=== PATIENT | male | born 1960 | race Caucasian/White ===

== ENCOUNTER 2021-11-10 15:02 | Emergency (ER) | payer MEDICARE, SELFPAY ==
[2021-11-10 15:10] VITALS: BP 119/67; PULSE 103; RESP 20; TEMP 36.9; O2SAT 97
--- NOTE | 2021-11-10 15:13 | ED.WOUNDLAC ---
HPI - Wound/Laceration General Chief Complaint: Wound/Laceration Stated Complaint: Puncture Wound/Left Foot Time Seen by Provider: 11/10/21 15:14 Source: patient and RN notes reviewed History of Present Illness HPI narrative: Patient is a 61-year-old male who presents the urgent care with complaints of a puncture wound to the left foot. Patient states he stepped on a nail approximately 1 hour ago that punctured through his flip-flop. Patient states that it came out almost immediately and he cleaned it with peroxide. Patient states that his biggest concern was getting up-to-date on his tetanus shot. No other acute complaints. No acute distress noted. Patient aware of the plan of care. Some parts of this dictation were generated by voice recognition software and may contain typographical and/or grammatical inaccuracies. Related Data Home Medications Medication Instructions Recorded Confirmed albuterol sulfate 90 mcg/actuation 2 inh INHALATION Q4H g 09/17/20 10/08/20 aerosol inhaler atorvastatin 20 mg tablet 20 mg PO DAILY 09/17/20 10/08/20 buspirone 10 mg tablet 10 mg PO TID 09/17/20 10/08/20 duloxetine 60 mg capsule,delayed 60 mg PO DAILY 09/17/20 10/08/20 release lactulose 10 gram/15 mL oral 15 ml PO DAILY 09/17/20 10/08/20 solution metoprolol succinate 50 mg 50 mg PO DAILY 09/17/20 10/08/20 tablet,extended release 24 hr multivit with min-folic 1 tablet PO DAILY 09/17/20 10/08/20 acid-lutein 400 mcg-250 mcg chewable tablet pantoprazole 40 mg tablet,delayed 40 mg PO QAM 09/17/20 10/08/20 release phentermine 37.5 mg capsule 37.5 mg PO DAILY 09/17/20 10/08/20 tamsulosin 0.4 mg capsule 0.4 mg PO DAILY 09/17/20 10/08/20 temazepam 30 mg capsule 30 mg PO QHS PRN 09/17/20 10/08/20 tiotropium bromide 2.5 2 puff INHALATION DAILY 09/17/20 10/08/20 mcg/actuation mist for inhalation valsartan 160 mg tablet 160 mg PO DAILY 09/17/20 10/08/20 lamotrigine 100 mg tablet 100 mg PO DAILY 10/01/20 10/08/20 bumetanide 3 mg PO BID 11/10/21 11/10/21 clonidine HCl 0.1 mg PO DAILY 11/10/21 11/10/21 ergocalciferol (vitamin D2) 1 unit PO MONTHLY 11/10/21 11/10/21 ondansetron 4 mg PO PRN 11/10/21 11/10/21 potassium chloride 50 meq PO DAILY 11/10/21 11/10/21 Allergies Allergy/AdvReac Type Severity Reaction Status Date / Time thiothixene Allergy Severe DYSTONIA Verified 11/10/21 15:19 prochlorperazine Allergy Unknown Unknown Verified 11/10/21 15:19 [From Compazine] PROCHLORPERAZINE EDISYLATE Allergy Severe DISTONIA Uncoded 11/10/21 15:19 PROCHLORPERAZINE MALEATE Allergy Severe DISTONIA Uncoded 11/10/21 15:19 Review of Systems Review of Systems: CONSTITUTIONAL: Denies fever, chills, or sweats. EYES: Denies visual changes, redness, or discharge. ENT: Denies rhinorrhea, congestion, sore throat, or otalgia. CARDIOVASCULAR: Denies chest pain, palpitations, or edema. RESPIRATORY: Denies cough or dyspnea. GASTROINTESTINAL: Denies abdominal pain, nausea, vomiting, or diarrhea. GENITOURINARY: Denies dysuria or hematuria. SKIN: Reports of a puncture wound to the bottom of the left foot MUSCULOSKELETAL: Denies back pain, joint pain, or myalgia. NEUROLOGIC: Denies headache, numbness, or weakness. All other systems reviewed are negative, except as documented in HPI. [facility] Past Medical History Medical History (Updated 11/10/21 @ 15:31 by MAGDALENO Huddleston) Barretts esophagus Bipolar disorder Cardiomyopathy Chronic back pain Chronic hepatitis Edema, lower extremity GERD (gastroesophageal reflux disease) Hyperlipidemia Hypertensive disorder Obesity Paraseptal emphysema Surgical History Surgical History (Updated 10/07/20 @ 09:19 by Corinna Lua MA) History of back surgery History of shoulder surgery frozen shoulder Family History Family History (Updated 10/01/20 @ 15:15 by Dulce Cisneros, RT(R)) Father Cancer Social History Social History (Updated 10/01/20 @ 15:14 by Dulce Cisneros, RT(R)) Smo
[2021-11-10] MEDS: TETANUS,DIPHTHERIA,AC PERTUSSIS ADULT (0.5 ML) BOOSTRIX IM (15:30)
== END 2021-11-10 15:50 | disposition home or self-care (01) ==
PROVIDERS: Emergency Provider Nurse Practitioner Family; PCP Nurse Practitioner Family
DX: S91.332A Puncture wound without foreign body, left foot, initial encounter (principal); W45.0XXA Nail entering through skin, initial encounter; Z23 Encounter for immunization; K22.70 Barrett's esophagus without dysplasia; K21.9 Gastro-esophageal reflux disease without esophagitis; E78.5 Hyperlipidemia, unspecified; I10 Essential (primary) hypertension; E66.9 Obesity, unspecified; Z68.39 Body mass index [BMI] 39.0-39.9, adult; F31.9 Bipolar disorder, unspecified; I42.9 Cardiomyopathy, unspecified; J43.9 Emphysema, unspecified
CPT/HCPCS: 90471; 90715; 99212; G0463